=== PATIENT | male | born 1945 | race Caucasian/White ===

== ENCOUNTER 2016-10-28 12:39 | Day surgery (SDC) | payer MEDICARE ==
--- NOTE | 2016-10-26 11:51 | PCM.ANEPRE ---
Anesthesia Pre-Op Review Reason for Review: CARDIAC HX-NEWLY DX AAA, COMORBIDITIES Anesthesia Recommendations: Proceed with Procedure Additional Comments Cardiac disease, but appears to be stable. Newly diagnosed AAA (5cm) but surgeons feel that further evaluation/treatment of this can wait until after lap jacki. Evaluation by anesthesiologist on DOS, proceed if stable. Chart Reviewed by: Dangelo Barrientos MD Oct 26, 2016 11:51
[~2016-10-28] VITALS: Ht 175.3 cm; Wt 142.4 kg
[2016-10-28] VITALS (9 sets, daily range): BP systolic 114–137; BP diastolic 63–77; PULSE 54–62; RESP 15–18; O2SAT 92–97
[~2016-10-28 12:39] MED LIST: ATOR80TA77 PO; CeFAZolin Inj 3 GM in IV Premix IV ONE; CeFAZolin Inj 3 Gm/ D5W 50 mL Bag IV ONE; FOLI-52 PO; FRSM80T PO; INSU100V7 SUBQ; LISI-567 PO; LOVENOX; Lactated Ringer's 1,000 ML IV SCH; METF500T4 PO; METO25TA99 PO; NIFE60TA62 PO; OMEP20TA86 PO; POTA10TA14 PO; SAW/1TAB2 PO; WARF3TAB7 PO
[2016-10-28] MEDS ORDERED: Esmolol 10,000 mCg/mL 10 mL Inj ONE (12:40)
[2016-10-28] MEDS ORDERED: Rocuronium 10 mg/mL 5 mL Inj ONE (12:40)
[2016-10-28] MEDS ORDERED: fentaNYL-PF 50 mCg/mL 2 mL Inj ONE (12:40)
[2016-10-28] MEDS ORDERED: Succinylcholine Chloride 20 mg/mL 5 mL Inj ONE (12:40)
[2016-10-28] MEDS ORDERED: Neostigmine 1 mg/mL 10 mL Inj ONE (12:40)
[2016-10-28] MEDS ORDERED: Glycopyrrolate 0.2 MG/ML 1mL Inj ONE (12:40)
[2016-10-28] MEDS ORDERED: Ondansetron 2 mg/mL 2 mL Inj ONE (12:40)
[2016-10-28] MEDS ORDERED: EPHEDrine/NS 5 mg/mL 5 mL Syringe ONE (12:40)
[2016-10-28] MEDS ORDERED: Propofol 10 mg/mL 20 mL Inj ONE (12:40)
[2016-10-28 13:44] LABS: INR 1.01 ratio
[2016-10-28] MEDS ORDERED: Lactated Ringer's 1,000 ML IV ONE ×2 (14:29→15:58)
[2016-10-28] MEDS ORDERED: Lactated Ringer's 500 ML IV PRN (15:02)
[2016-10-28] MEDS ORDERED: Lactated Ringer's 1,000 ML IV SCH (15:02)
[2016-10-28] MEDS ORDERED: Bupivacaine 0.5%/EPI 50 mL Inj INFILTRATE ONE (15:02)
--- NOTE | 2016-10-28 15:02 | PCM.HPANE ---
Patient Data Surgeon Admitting Provider: Attending Provider:Dalia Briseno MD Primary Care Physician:Pancho Craft MD Other Provider:Neptali Berger Anesthesia Reason for Visit Chronic Cholecystitis Ht/WT & BMI Height (Feet): 5 Height (Inches): 9.00 Weight (Kilograms): 142.428 Body Mass Index 46.00 Allergies Coded Allergies: No Known Allergies (Unverified , 10/23/16) Past Anesthesia History Anesthesia History: Denies:: Abnormal Airway, Anesthesia Reactions, Difficult Intubation, Fam Anesthesia Reaction, Fam Malignant Hypertherm, Malignant Hyperthermia Diabetes History Hx Diabetes?: Yes (METFORMIN & LANTUS) Type of Diabetes: Type II Glycemic Control: Insulin & Oral Medication Current Bedside Blood Glucose: 124 MRSA MRSA: No Medications Blood Thinner: Coumadin Hypertension Medication: Yes (LASIX,LISINOPRIL,NIFEDIPINE) Home Meds Incl Beta Kaylee: Yes (METOPROLOL) Date Beta Kaylee Taken: Oct 28, 2016 Time Beta Kaylee Taken: 0900 Previous Beta Kaylee Dose >24: Previous Dose <24 Hours Reported Medications [Lovenox] No Conflict Check LOVENOX BRIDGING BEGUN 10/24/16 10/23/16 Warfarin Sodium 3 Mg Tablet3 Mg PO DAILY 30 Days Ref 0 10/23/16 Metoprolol Succinate ER 25 Mg Tab.er.24h25 Mg PO BID Ref 0 01/10/15 Insulin Glargine (Lantus U100 Insulin Vial)100 Unit/Ml Vial38 Unit SUBQ HS #1 VIAL Ref 0 01/10/15 Metformin 500 Mg Twxsao249 Mg PO BID Ref 0 01/10/15 Nifedipine ER 60 Mg Tab.er.2460 Mg PO DAILY Ref 0 01/09/15 Saw/Vit E/Sod Abbey/Lyc/Beta/Pyg (Prostate Health Caplet)1 Each Tablet1 Each PO DAILY 10/30/14 Furosemide 80 Mg Tab80 Mg PO BID 30 Days Ref 0 07/03/14 Multivitamin/Iron/Folic Acid (Centrum Complete Multivit Tab)1 Each Tablet1 Each PO DAILY 01/12/14 Potassium Chloride ER (Klor-Con M10)10 Meq Tab.er.prt10 Meq PO DAILY 30 Days Ref 0 01/12/14 Lisinopril 20 Mg Dptahg94 Mg PO DAILY 30 Days Ref 0 01/12/14 Atorvastatin Calcium 80 Mg Yjhgeg11 Mg PO DAILY 30 Days Ref 0 01/12/14 Discontinued Reported Medications Omeprazole 20 Mg Tablet.dr20 Mg PO DAILY 30 Days 01/12/14 Warfarin Sodium 2.5 Mg Tablet2.5 Mg PO Q4DAY 30 Days Ref 0 12/10/15 Warfarin Sodium 5 Mg Tablet5 Mg PO Q3DAYS 30 Days Ref 0 12/10/15 History History of ENT Problems?: Yes HEENT History: Positive for:: Hearing Problem (MILD) Denies:: Abnormal Airway Cataracts Difficult Intubation Dysphagia Glaucoma Sinus Problem TMJ Denture Type: None Teeth Condition: Within Normal Limits Other HEENT Pertinent History: S/P T&A Hx of Heart Problems?: Yes Cardiovascular History: Positive for:: Abdominal Aortic Aneurism (DX BY U/S -AAA 5.1CM) Atrial Fibrillation (S/P ELEC. CARDIOVERSION 07/2014) Cardiac Surgery (HS/P HEART CATH W/ STENT ?2003) Chest Pain (ANGINA) Coronary Artery Disease Edema Hypertension (HYPERLIPIDEMIA) Irregular Heartbeat (HX A FIB) Denies:: AICD Heart Murmur (ECHO 06/2015 EF 55-60% REPEAT ECHO SCHED 11/03/2016) Pacemaker Valvular Heart Disease Other Cardiac History: HX RAYNAUD'S SYNDROME Denies current CP. < 4METS Echo from 06/25 normal EF AAA: 5.1 cm (OKed to proceed with Lap. barney) Hx of Respiratory Problem?: Yes Respiratory History: Positive for:: Dyspnea (CHAND) Pneumonia (HX OF) Use of C-PAP Machine (DESTINY+ BY HX, doesn't tolerate CPAP) Denies:: Asthma COPD Chest Surgery Cough Hemoptysis Tuberculosis Hx Neurologic Problems?: No Neurological History: Denies:: Alzheimer's Disease CVA Dementia Dizziness Headaches Multiple Sclerosis Parkinson's Disease Peripheral Neuropathy Seizures TIA Other Neurological Pertinent: HX HSV Hx of GI Problems?: Yes Other GI Pertinent History: PT SCHEDULED FOR LAP BARNEY 01/2014-CASE CANCELLED R/T HIGH BLOOD SUGARS S/P APPY,UMBILICAL HERNIA RPR Hx of Problems?: No Male Hx: Positive for:: Prostate Problems (BPH) Denies:: Scrotal Mass Testicular Surgery Skin History: Positive for:: History Skin Disorders? (PSORIASIS,SEBORRHEIC KERATOSIS) Denies:: Pressure Ulcers Hx Musculoskeletal Problems?: No Musculoskeletal History: Denies:: Joint Replacement Hx of Psycho/Social Problems?: No Psycho Social History: Denies:: Anxiety Hx Depression Hx Surgeries?: Yes (B/L KNEE RPR'S,T&A,APPY,UMBILICAL HERNIA RPR,HEART CATH/ STENT,CARDIOVERSION) Hx Any Other Health Problems?: Yes Other History: Denies:: Cancer Endocrine Disease Hospitalization Thyroid Disease History Blood Transfusions: Denies:: Blood Transfusions Hx Diabetes: Yes (METFORMIN & LANTUS)Bedside Blood Glucose: 124 Hx Alcohol Use: YesAlcoholic Drinks Per Day: 4/DAYHx Substance Use: No Smoking Status: Former Smoker Have You Smoked inLast 12 mo: No Stop/Bang S-Snoring: Do You Snore Loudly: Yes T-Tired: feel tired, fatigued: No O-Obsered: Observed not breath: No P-Blood Pressure: treated: Yes B- Body Mass Index > 35 kg/m2: Yes A- Age over 50: Yes N- Neck Large Circumference: Yes G- Gender Male: Yes DESTINY Total Score: 6 DESTINY Risk Assessment: High Risk, =/>3 Yes Risk Assessment Category Category 1A: Patient has history of documented sleep apnea, and HAS NOT received any narcotic, sedative or anesthesia administration during this stay. Category 1B: Patient has history of documented sleep apnea, and HAS received any narcotic , sedative or anesthesia administration during this stay Category 2: Patient has SUSPECTED Obstructive Sleep Apnea, and HAS received any narcotic , sedative or anesthesia administration during this stay. Category 3: Patient has SUSPECTED Obstructive Sleep Apnea and HAS NOT received narcotic, sedative or anesthesia administration during this stay. Category 4: Outpatient in Procedural Areas with known sleep apnea or who screen positive for High Risk via the STOP/BANG questionnaire. Exam Exam Vital Signs Vital Signs Date Time Temp Pulse Resp B/P Pulse Ox O2 Delivery O2 Flow Rate FiO2 10/28/16 13:29 57 18 114/69 95 Room Air General Appearance: Alert, Oriented X3, Cooperative, No Acute Distress HEENT/AIRWAY: MP 3 Lungs: Clear to Auscultation, Normal Air Movement Heart: Exam Unremarkable, Regular Rate/Rhythm, No Murmurs/Rubs/Gallops Meds/Labs/Diagnostics Bedside Blood Glucose: 124 Labs Test 10/28/16 13:15 Plan Impression Patient chart reviewed, patient interviewed and anesthestic plan with risks, benefits, and alternatives discussed, and informed consent obtained. NPO per Anesth. Guidelines: Yes ASA Physical Status: ASA3 Severe Disease Anesthetic Plan: GA Bene/Risks/Altern/Consents: Yes HP Complete Prior to Induction: Yes Red Hernandez MD Oct 28, 2016 13:44
[2016-10-28] MEDS ORDERED: MetoCLOpramide 5 mg/mL 2 mL Inj IVPUSH PRN (15:05)
[2016-10-28] MEDS ORDERED: Phenylephrine 10,000 mCg/mL Inj IVPUSH PRN (15:05)
[2016-10-28] MEDS ORDERED: EPHEDrine Sulfate 50 mg/mL Inj IVPUSH PRN (15:05)
[2016-10-28] MEDS ORDERED: Labetalol 5 mg/mL 4 mL Inj IV PRN (15:05)
[2016-10-28] MEDS ORDERED: Ondansetron 2 mg/mL 2 mL Inj IVPUSH PRN (15:05)
[2016-10-28] MEDS ORDERED: HYDROmorphone 1 mg/mL Inj IVPUSH PRN (15:05)
[2016-10-28] MEDS ORDERED: Atropine 0.4 mg/mL Inj IVPUSH PRN (15:05)
[2016-10-28] MEDS ORDERED: oxyCODONE-Acetamin 5-325 mg Tablet PO PRN (16:00)
--- NOTE | 2016-10-28 16:06 | PCM.SURGOP ---
Surgical Operative Report Date of Service: Oct 28, 2016 Pre Operative Diagnosis Chronic cholecystitis Post Operative Diagnosis Chronic cholecystitis Procedure: Laparoscopic cholecystectomy Surgeon and Heavy Machinery Assembler: Surgeon: Dalia Briseno MD Assistants: Pelon Benitez PA-C; Aiden Flores PA-C; Malika Kilgore, MS4 optical assistant was necessary for retraction and for driving the camera. Indication for Procedure This is a 70-year-old man who, in 2013, reported a several year history of postprandial right upper quadrant abdominal pain. An ultrasound was performed at that time revealing cholelithiasis, and he was scheduled for laparoscopic cholecystectomy. However, on the preoperative blood glucose check, his blood sugar was in the 500s, and therefore the case was canceled. Since that time, adequate control was obtained of his diabetes, and today on preoperative blood glucose check, he was in the 120s. He continued to have intermittent has postprandial right upper quadrant pain and therefore was rescheduled for laparoscopic cholecystectomy. Findings: 1. Thickened, edematous gallbladder wall consistent with chronic cholecystitis. 2. Dilated gallbladder which required decompression for retraction. Procedure Details The patient was brought to the operating room and placed in supine position. General endotracheal anesthesia was smoothly induced. Antibiotics were infused. A warming blanket and SCDs were placed. A foot board was placed. The operative field was prepped and draped in sterile fashion. A pause was performed to confirm the correct patient, procedure, site, and side. A vertical 10 mm incision was made 5 cm above the umbilicus. The abdomen was entered using an Optiview 11 mm port. Three additional 5 mm ports were placed in the epigastrium and right upper quadrant. The gallbladder was identified and lifted cephalad. It was very distended and difficult to grasp. Therefore, it was decompressed with long laparoscopic needle. Approximately 90 mL of dark brown bile was removed. Dissection then proceeded to identify the cystic duct, cystic artery, and to expose the bottom one third of the cystic plate. There was a significant amount of fat surrounding the gallbladder, and the wall was thickened and edematous. Once there were two and only two structures entering the gallbladder, the cystic duct was clipped on the gallbladder and twice on the patient side, and the cystic artery was clipped on both the patient's side and the gallbladder side, and both were then divided. The gallbladder was then removed from its bed on the liver with electrocautery. Prior to completely removing the gallbladder, a final look was taken at the stump of the cystic artery and cystic duct, and there was no bleeding or bile leak. The gallbladder was then fully removed from the liver and placed in an EndoCatch bag and removed. The three 5 mm ports were removed under direct vision, the 11 mm mid abdominal port was removed, and an interrupted laparoscopic 0 PDS was used with a Preet-Radha device to close the fascia. There was no fascial defect at the end of the case. 0.5% Marcaine with epinephrine was infused at all port sites for postoperative analgesia. The skin was closed with subcuticular 4-0 Monocryl. Sterile dressings were placed. The patient was awakened from general anesthesia and taken to the postoperative care unit in good condition. Complications There were no periprocedural complications identified. Surgical Specimen Removed: Yes Specimen sent to Pathology: Yes Surgical Specimen description: Gallbladder Anesthetic Plan: GA Grafts, Implants: None Output, Estimated Blood Loss: 5 (ml) Blood Administration during diaz: No Dalia Briseno MD Oct 28, 2016 16:06
--- NOTE | 2016-10-28 16:17 | PCM.ANEP1 ---
Post Anesthesia PACU Phase 1 Assessment Vital Signs VSS per MANAGER DELIVERY Vital Signs Date Time Temp Pulse Resp B/P Pulse Ox O2 Delivery O2 Flow Rate FiO2 10/28/16 13:29 57 18 114/69 95 Room Air Anesthetic Administered: GA Level of Alertness: Awake, talking CABAN's with Equal Strength: Yes Pain: No Nausea or Vomiting: No CV Function & Hydration Stable: Yes Airway Device: Endotrachial Tube Oxygen Delivery: Simple Mask Lungs: Clear to Auscultation, Normal Air Movement PACU Phase 2 Assessment Complications: No Follow up Care: N/A Patient Instructions Provided: N/A Red Hernandez MD Oct 28, 2016 16:17
[2016-10-28] MEDS: fentaNYL-PF 50 mCg/mL 2 mL Inj IVPUSH PRN ×2 (16:26→16:35)
--- NOTE | 2016-10-30 12:44 | PATH ---
SURGICAL PATHOLOGY Attending Physician:Dalia Briseno MD CASE STATUS: Signed Out PATIENT NAME: ABRAHAM SIDDIQUI PID: [id number] : 1945 DATE COLLECTED:10/28/2016 23:37 SPECIMEN: Gallbladder CLINICAL HISTORY: CHRONIC CHOLECYSTITIS 1). GALLBLADDER FINAL DIAGNOSIS: 1.GALLBLADDER: CHOLELITHIASIS WITH ASSOCIATED CHRONIC CHOLECYSTITIS. ICD10 K80.66 GROSS DESCRIPTION: The specimen is received in one formalin filled container labeled with the patient's name, sublabeled "gallbladder" and consists of an intact 8.5 x 0.5 x 2.0 CM gallbladder. The serosa of is smooth. The wall is 0.2-0.6 CM in thickness. The mucosa is a green to pink-stewart in color. The lumen contains a dark green mucoid material and 3 green-black rough calculi which range in size from 0.3-0.5 CM. 5 medical customer service representative sections are submitted in cassette. 10/29/2016 [facility] MICRO DESCRIPTION: See diagnosis. ICD-9 CODES: CPT CODES: 1: 38099 Electronically Signed Out Woody Gao MD [facility] [address], [place] [address] Technical component performed at [facility], [facility] [address], [address]
== END 2016-10-28 23:59 | disposition home or self-care (01) ==
LOC: SAS 12:39
PROVIDERS: ATTEND Surgery
DX: K80.10 Calculus of gallbladder with chronic cholecystitis without obstruction (principal); E11.9 Type 2 diabetes mellitus without complications; I10 Essential (primary) hypertension; I25.10 Atherosclerotic heart disease of native coronary artery without angina pectoris; E66.9 Obesity, unspecified; G47.30 Sleep apnea, unspecified; I48.2 Chronic atrial fibrillation; E78.5 Hyperlipidemia, unspecified; I73.00 Raynaud's syndrome without gangrene; Z87.891 Personal history of nicotine dependence; Z95.5 Presence of coronary angioplasty implant and graft; Z79.01 Long term (current) use of anticoagulants; Z79.4 Long term (current) use of insulin; Z79.84 Long term (current) use of oral hypoglycemic drugs; Z68.42 Body mass index [BMI] 45.0-49.9, adult
CPT/HCPCS: 36415; 47562; 85610; J0330; J0690; J2405; J2710; J3010; J7120